=== PATIENT | female | born 1965 | race Caucasian/White ===

== ENCOUNTER 2019-10-24 08:56 | Day surgery (SDC) | payer OTHER ==
[2019-10-23 17:16] VITALS: BMI 28.3
[2019-10-24] MEDS ORDERED: MIDAZOLAM HCL 2 MG/2 ML SINGLE DOSE VIAL ONE (10:18)
--- NOTE | 2019-10-24 10:42 | HP ---
Admitting History and Physical - Admission History of Present Illness: The patient is a 54 yo female who presents today for an endoscopy and colonscopy today with Dr. Martinez. She originally saw him in May and was scheduled for a colonscopy in [facility]. It was cancelled becue she developed SOB. She was seen by cardiology and her PMD who is a it admin. As per the patient her cardiac workup was negative and it included a stress test and echo. Her PMD prescribed her an inhaler and did office pulmonary testing. She feels that the inhaler didn't help relieve her symptoms. The patient denies LAWSON, she plays tennis and exercises without difficulty. She has been prescribed medication for reflux. Her last colonoscopy was in 01/04. She has them completed every 3 years because of a family history of colon cancer. She completed her bowel prep today and is passing clear liquid/no blood. She denies any abdominal pain today. No nausea or emesis. The patient does give a history of irritable bowels having loose stools and using immodium to control her symptoms. She states that she hasn't discussed this with Dr. Martinez in the past. History Source: Patient Limitations to Obtaining History: No Limitations - Past Medical History Cardiovascular: No: Deep Vein Thrombosis Pulmonary: No: Asthma Gastrointestinal: Yes: Other (colonic polyp(hyperplastic)) Renal/: No: Renal Failure, Hematuria, UTI Heme/Onc: No: Bleeding Disorder Musculoskeletal: Yes: Other (bilateral knee pain) Endocrine: Yes: Hypothyroidism - Past Surgical History Additional Past Surgical History: b/l breast reduction liposuction rhinoplasty - Smoking History Smoking history: Never smoked Have you smoked in the past 12 months: No - Alcohol/Substance Use Hx Alcohol Use: Yes (WEEKENDS) Home Medications - Allergies Allergies/Adverse Reactions: Allergies Allergy/AdvReac Type Severity Reaction Status Date / Time Penicillins Allergy Severe Verified 10/23/19 15:18 Sulfa (Sulfonamide Allergy Severe Verified 10/23/19 15:18 Antibiotics) - Home Medications Home Medications: Ambulatory Orders Atorvastatin Ca [Lipitor] 10 mg PO DAILY 10/23/19 Dexlansoprazole [Dexilant] 60 mg PO DAILY 10/23/19 Famotidine [Pepcid -] 40 mg PO DAILY 10/23/19 Levothyroxine [Synthroid -] 100 mcg PO DAILY 10/23/19 Review of Systems - Review of Systems Constitutional: denies: Chills, Fever Neck: denies: Decreased ROM Cardiovascular: denies: Chest Pain, Palpitations Respiratory: reports: SOB. denies: Cough Gastrointestinal: reports: Diarrhea (intermittent with no blood), Other (denies bad taste in her mouth/burning substernal area). denies: Abdominal Pain, Constipation Genitourinary: denies: Burning, Dysuria, Hematuria Musculoskeletal: reports: Extremity Pain (intermittent b/l knee pain) Neurological: denies: Numbness (occasional to wrist, pt has right carpal tunnel symdrome), Parasthesia Hematology/Lymphatic: denies: Easily Bruised, Excessive Bleeding Physical Examination Vital Signs: Vital Signs Temperature 98.3 F 10/24/19 10:08 Pulse Rate 52 L 10/24/19 10:08 Respiratory Rate 18 10/24/19 10:08 Blood Pressure 141/89 10/24/19 10:08 O2 Sat by Pulse Oximetry (%) 99 10/24/19 10:08 Constitutional: Yes: Well Nourished Eyes: Yes: Conjunctiva Clear HENT: Yes: WNL, Atraumatic, Normocephalic Neck: Yes: WNL, Supple, Trachea Midline Cardiovascular: Yes: WNL, Regular Rate and Rhythm Respiratory: Yes: WNL, Regular, CTA Bilaterally Gastrointestinal: Yes: Normal Bowel Sounds, Soft Extremities: Yes: Calf Tenderness Edema: No Neurological: Yes: WNL, Alert, Oriented ...Motor Strength: WNL, LUE, LLE, RUE, RLE Psychiatric: Yes: WNL, Alert, Oriented Assessment/Plan The patient is here today for rountine colonscopy and EGD Documentation regarding cardology/pulmonary workup not available at point of care today, reviewed with the patient and anesthesia. Anethesia cleared pt for procedure Dr. Martinez aware of pt care and pre-procedural workup but documentation is not present in the chart D/w Dr. Waggoner
[2019-10-24 11:11] VITALS: PULSE 62; TEMP 97.5
[2019-10-24 11:13] VITALS: BP 115/68
--- NOTE | 2019-10-25 16:20 | PATH ---
Surgical Pathology Report Patient Name: KRISTINE GRAY [facility]. Rec. #: [id number] /Age/Gender: 1965 (Age: 54) / F Account: [id number] Location: [facility]-ENDOSCOPY Taken: 10/24/2019 Received: 10/24/2019 Reported: 10/25/2019 Physicians: Karl Stevens M.D. Specimen(s) Received A: DUODENUM B: STOMACH ANTRUM C: ESOPHAGUS D: DESCENDING COLON POLYP E: RECTUM POLYP Clinical History Colon screening, heme positive stool, change in bowel habits, family history of colon cancer Postoperative diagnosis: Gastritis, rule out GERD, rule out H. Pylori, rule out celiac Final Diagnosis A. DUODENUM, BIOPSY: DUODENAL MUCOSA WITHOUT SIGNIFICANT PATHOLOGIC FINDINGS. B. STOMACH, ANTRUM, BIOPSY: GASTRIC ANTRAL MUCOSA WITH MILD CHRONIC GASTRITIS. IMMUNOHISTOCHEMICAL STAIN FOR H. PYLORI IS NEGATIVE. C. ESOPHAGUS, BIOPSY: SQUAMOUS MUCOSA WITHOUT SIGNIFICANT PATHOLOGIC FINDINGS. D. DESCENDING COLON, POLYP, BIOPSY: COLONIC MUCOSA WITH FOCAL MILD SUPERFICIAL HYPERPLASTIC FEATURES. E. RECTUM, POLYP, BIOPSY: HYPERPLASTIC POLYP. Positive and negative controls (internal if applicable) show appropriate results. Electronically Signed Nora Arias M.D. Gross Description A. Received in formalin, labeled "duodenum biopsy" are 2 segundo, irregular portions of soft tissue measuring 0.2 and 0.3 cm. in greatest dimension. The specimens are submitted in toto in one cassette. B. Received in formalin, labeled "stomach antrum" are 2 segundo, irregular portions of soft tissue measuring 0.2 and 0.3 cm. in greatest dimension. The specimens are submitted in toto in one cassette. C. Received in formalin, labeled "esophagus" are 2 segundo, irregular portions of soft tissue averaging 0.4 cm. in greatest dimension. The specimens are submitted in toto in one cassette. D. Received in formalin, labeled "descending colon polyp" is a segundo, irregular portion of soft tissue measuring 0.2 cm. in greatest dimension. The specimen is submitted in toto in one cassette. E. Received in formalin, labeled "rectum polyp" are 2 segundo, irregular portions of soft tissue averaging 0.2 cm. in greatest dimension. The specimens are submitted in toto in one cassette. 10/24/2019 saudi10/24/2019
== END 2019-10-24 11:49 | disposition home or self-care (01) ==
LOC: EDBD → JASU-ENDO 08:56
PROVIDERS: ATTEND Internal Medicine Gastroenterology
PROC: 0DBP8ZX Excision of Rectum, Via Natural or Artificial Opening Endoscopic, Diagnostic (ICD-10-PCS; 2019-10-24)
PROC: 0DB98ZX Excision of Duodenum, Via Natural or Artificial Opening Endoscopic, Diagnostic (ICD-10-PCS; 2019-10-24)
PROC: 0DB68ZX Excision of Stomach, Via Natural or Artificial Opening Endoscopic, Diagnostic (ICD-10-PCS; 2019-10-24)
PROC: 0DB38ZX Excision of Lower Esophagus, Via Natural or Artificial Opening Endoscopic, Diagnostic (ICD-10-PCS; 2019-10-24)
PROC: 0DBM8ZX Excision of Descending Colon, Via Natural or Artificial Opening Endoscopic, Diagnostic (ICD-10-PCS; principal; 2019-10-24 11:00)
DX: Z12.11 Encounter for screening for malignant neoplasm of colon (principal); R10.13 Epigastric pain; Z80.0 Family history of malignant neoplasm of digestive organs; D12.4 Benign neoplasm of descending colon; K62.1 Rectal polyp; K29.50 Unspecified chronic gastritis without bleeding; E03.9 Hypothyroidism, unspecified; K64.8 Other hemorrhoids